=== PATIENT | female | born 1955 | race Caucasian/White ===

== ENCOUNTER → 2016-04-24 | Outpatient (CLI) | payer OTHER ==
[~2016-04-24] MED LIST: ASCO1CAP3 PO; ATOR10TA88 PO; B-COTAB18 PO; CALC-478 PO; COEN1CAP37 PO; FERR1TAB13 PO; FLAX1CAP11 PO; GING1CAP PO; GLUC1CAP35 PO; MOME200A INH; OMEG10007 PO; OPTIRAY 320 IV PRN; PRVIN525 INH; VITA1CAP4 PO; [UNRECOGNIZED DRUG - CODE] PO
--- NOTE | 2016-04-24 10:03 | DIAGNOSTIC IMAGING REPORT ---
CHEST CT WITH CONTRAST CT DOSE: 804.20 mGy.cm HISTORY: Lymphadenopathy. Lung opacities. Follow-up. R93.8 Abnormal finding on [id number] TECHNIQUE: Multiaxial CT images of the chest were performed following the intravenous administration of contrast. COMPARISON: Chest CT 10/02/2015. FINDINGS: There are again noted scattered multifocal airspace opacities. This is most pronounced within the right middle lobe and lingula. There is associated scattered tree-in-bud nodular opacities throughout the lungs. Airspace opacities within the lingula have slightly improved. There are few new airspace opacities within the left lower lobe. Trace mucoid material within the trachea. No pleural effusions. No pneumothorax. A few of the biapical airspace opacity demonstrate small areas of cystic change/cavitation. This is similar to the prior studies. No hepatic or splenic masses. There are few punctate calcified granulomas within the spleen. The adrenal glands are unremarkable. The mediastinal and left hilar lymphadenopathy is again noted. This is not significantly change from the prior study. Normal caliber thoracic aorta. The heart is normal in size. The central pulmonary arteries are patent. The main pulmonary artery is dilated up to 3.8 cm. This is consistent with pulmonary arterial hypertension. IMPRESSION: 1. Redemonstration of the scattered multifocal airspace opacities and tree-in-bud nodular opacities. This has demonstrated a waxing and waning appearance dating back to the 2013 examinations. Therefore, this favors chronic inflammatory/infectious change such as cryptogenic organizing pneumonia. Sarcoidosis could also have a similar appearance but is considered less likely. 2. Stable mediastinal and left hilar lymphadenopathy. Electronically signed by: Ben Choudhary M.D. 04/24/2016 10:01 AM Dictated Date/Time: 04/24/2016 9:49 AM
== END | disposition home or self-care (01) ==
LOC: C.CTS 08:39
PROVIDERS: ATTEND Internal Medicine Pulmonary Disease
DX: R59.0 Localized enlarged lymph nodes (principal); R93.8 Abnormal findings on diagnostic imaging of other specified body structures

== ENCOUNTER → 2016-06-12 | Day surgery (SDC) | payer OTHER ==
[2016-05-06 13:19] VITALS: BMI 38.0
--- NOTE | 2016-05-06 13:46 | PAT Medication Instructions ---
Service Date May 06, 2016. Current Home Medication List Albuterol Sulf (Albuterol Sulfate), 1 DOSE INH Q4H PRN for Shortness of Breath Ascorbic Acid (Vitamin C), 500 MG PO QAM Atorvastatin (Lipitor), 10 MG PO HS B-Complex Vitamins (Vitamin B Complex), 1 TAB PO QAM Ncffajd-Jojbbulyd-Dikn (Calcium & Magnesium + Zin 334-134-5 mg), 1 TAB PO HS Coenzyme Q10 (Ubidecarenone) (Co Q-10), 200 MG PO QPM Ferrous Sulfate (Kp Ferrous Sulfate), 1 TAB PO QAM Fish Oil (Blanch-3), 1 CAP PO BID Flaxseed (Linseed) (Flax Seed Oil), 1 CAP PO BID Garlic (Garlic), 1,500 MG PO QPM Knldsuyiufz-Ewqqgpofilb-Hlm C- (Glucosamine Chondroitin), 1 CAP PO HS Mometasone Furoate-Formoterol (Dulera 200/5 Mcg), 1 AER INH BID PRN for Shortness of Breath Vitamin E (E 1000), 1 DOSE PO QAM Medication Instructions For Your Scheduled Surgery - Hold the following medications starting 05/06/16: Vitamin E (E 1000), 1 DOSE PO QAM Garlic (Garlic), 1,500 MG PO QPM Vefslygklfk-Fhswnwpsthl-Jka C- (Glucosamine Chondroitin), 1 CAP PO HS Fish Oil (Blanch-3), 1 CAP PO BID Flaxseed (Linseed) (Flax Seed Oil), 1 CAP PO BID Katie Root BID Coenzyme Q10 (Ubidecarenone) (Co Q-10), 200 MG PO QPM - Hold the following medications the morning of surgery: B-Complex Vitamins (Vitamin B Complex), 1 TAB PO QAM Ferrous Sulfate (Kp Ferrous Sulfate), 1 TAB PO QAM Ascorbic Acid (Vitamin C), 500 MG PO QAM - Take the following medications the morning of surgery with a sip of water: Mometasone Furoate-Formoterol (Dulera 200/5 Mcg), 1 AER INH BID PRN for Shortness of Breath Albuterol Sulf (Albuterol Sulfate), 1 DOSE INH Q4H PRN for Shortness of Breath - Take the following medications as scheduled the night before surgery: Mdhqhwn-Avarlnfqt-Kxue (Calcium & Magnesium + Zin 334-134-5 mg), 1 TAB PO HS Atorvastatin (Lipitor), 10 MG PO HS Mometasone Furoate-Formoterol (Dulera 200/5 Mcg), 1 AER INH BID PRN for Shortness of Breath Albuterol Sulf (Albuterol Sulfate), 1 DOSE INH Q4H PRN for Shortness of Breath If you have any questions please call us at [phone] (Miranda Akbar PA-C) or [phone] or [phone]
[2016-05-06 14:43] LABS: BASO % 0.8 %; BASO ABS # 0.05 K/uL (0-0.2); COMPLETE YES; HEMATOCRIT 38.8 % (37-47); IG% 0.3 %; LYMPH % 26.3 %; LYMPH ABS # 1.68 K/uL (1.2-3.4); MEAN CELL VOLUME 91.9 fL (80-100); MEAN CORPUSCULAR HEMOGLOBIN 31.5 pg (25-34); MEAN CORPUSCULAR HGB CONC 34.3 g/dl (32-36); MEAN PLATELET VOLUME 10.3 fL (7.4-10.4); MONO % 6.3 %; NEUT % 58.3 %; PLATELET COUNT 189 K/uL (130-400); RED BLOOD COUNT 4.22 M/uL (4.2-5.4); WHITE BLOOD COUNT 6.38 K/uL (4.8-10.8)
[~2016-06-12] VITALS: Ht 162.6 cm; Wt 99.8 kg
[~2016-06-12] MED LIST changes: +ALBUTEROL 0.083% NEBU SOLN 3 ML VIAL INH PRN; +ATROPINE SULFATE 0.1 MG/ML 5ML SYR IV PRN; +CLINDAMYCIN PHOS 150 MG/ML 2 ML VIAL IV ONE; +DEXAMETHASONE SOD INJ 4 MG/ML VIAL ONE; +EpHEDrine SULFATE INJ 50 MG/ML AMP IV PRN; +EpHEDrine SULFATE INJ 50 MG/ML AMP ONE; +FENTANYL CITRATE INJ 50 MCG/1 ML 2 ML VIAL ONE; +FLUMAZENIL 0.1 MG/1 ML 10 ML VIAL IV PRN; +GLYCOPYRROLATE INJ 0.2 MG/ML VIAL ONE; +LABETALOL HCL IV 5 MG/ML 20ML IV PRN; +LACTATED RINGER'S 1000ML 1,000 ML IV SCH; +LIDOCAINE HCL 2% 2 ML VIAL (20MG/ML) ONE; +MIDAZOLAM HCL 1 MG/ML 2ML VIAL ONE; +NALOXONE HCL 0.4 MG/1 ML VIAL/CARP IV PRN; +NEOSTIGMINE METHYLSULFATE 5 MG/5 ML SYR ONE; +ONDANSETRON INJ 2 MG/ML 2 ML VIAL IV PRN; +ONDANSETRON INJ 2 MG/ML 2 ML VIAL ONE; -OPTIRAY 320 IV PRN; +PHENYLEPHRINE HCL INJ 10 MG/ML VIAL ONE; +PROMETHAZINE HCL INJ 12.5 MG in SODIUM CHLORIDE 0.9% 50ML 50 ML IV PRN; +PROPOFOL IV EMULSION 10 MG/ML 20 ML VIAL IV ONE; +ROCURONIUM BROMIDE 10 MG/ML 5 ML VIAL ONE; +SUCCINYLCHOLINE CHLORIDE 20 MG/ML 10 ML VIAL IV ONE
[2016-06-12 07:05] VITALS: BP 139/75; PULSE 68; TEMP 36.9; O2SAT 93; Ht 162.6 cm; Wt 99.8 kg
--- NOTE | 2016-06-12 07:33 | Discharge Instructions ---
Discharge Instructions Visit Reason for Visit: Mediastinal Adenopathy Discharge Goals Goal(s): Learn about illness Activity Recommendations Activity Limitations: resume your previous activity (in 24 hours) Anesthesia . Post Anesthesia Instructions: If you have had General Anesthesia or IV Sedation: * Do not drive today. * Resume driving when surgeon permits. * Do not make important decisions or sign legal documents today. * Call surgeon for: 1. Temperature elevations greater than 101 degrees F. 2. Uncontrollable pain. 3. Excessive bleeding. 4. Persistent nausea and vomiting. 5. Medication intolerance (nausea, vomiting or rash). * For nausea and vomiting use only clear liquids such as: tea, soda, bouillon until nausea subsides, then gradually increase diet as tolerated. * If you have any concerns or questions, call your surgeon's office. If physician is unavailable and it is an emergency, call 911 or go to the nearest emergency room. . Instructions / Follow-Up Instructions / Follow-Up 1. You may cough up some blood. Call physician if excessive amount noted. 2. Keep your scheduled appointment with Dr. Adams on June 19 @11:45. Diet Recommendations Recommended Home Diet: resume previous diet Pending Studies Studies pending at discharge: no Medical Emergencies . Who to Call and When: Medical Emergencies: If at any time you feel your situation is an emergency, please call 911 immediately. . Non-Emergent Contact Non-Emergency issues call your: Surgeon Call Non-Emergent contact if: you have a fever, your pain is not controlled . . "Provider Documentation" section prepared by William Godfrey.
--- NOTE | 2016-06-12 07:41 | History and Physical ---
History & Physical Date Jun 12, 2016. Chief Complaint Persistent cough and mediastinal lymphadenopathy. History of Present Illness The patient is a 61 year old female with complaints of chronic, persistent cough. Ct Scan shows mediastinal lymphadenopathy. She also has infiltrative changes in her lung king which wax and wane. Cough productive of whitish sputum. No fevers. No weight loss. Past Medical/Surgical History sleep apnea, obesity. Never smoked. Additional History Hepatic Disease: No Endocrine Disorder: No Kidney Disease: No Hypertension: No Heart Disease: No Bleeding Tendencies: No Allergies Coded Allergies: Moxifloxacin (Verified Allergy, Mild, RED, HIVES, CHEST PAIN, 06/12/16) Nickel (Verified Allergy, Mild, RED SORE WITH EARRINGS, 06/12/16) Physical Examination Skin: warm/dry, no rash Eyes: normal inspection, EOMI, sclerae normal ENT: normal ENT inspection, pharynx normal Head: normocephalic, atraumatic Neck: supple, no adenopathy, trachea midline Respiratory/Chest: lungs clear, normal breath sounds, no respiratory distress Cardiovascular: regular rate, rhythm, no edema, no murmur Extremities: normal inspection, normal range of motion Diagnosis mediastinal lymphadenopathy. Plan of Treatment EBUS
--- NOTE | 2016-06-12 10:12 | Medical Student: [facility] ---
Immediate Operative Summary Operative Date Jun 12, 2016. Pre-Operative Diagnosis Mediastinal lymphadenopathy Post-Operative Diagnosis Mediastinal lymphadenopathy Procedure(s) Performed Endobronchial Ultrasound with Biopsies Surgeon Dr. Adams Professor Of Practice Surgeon(s) none Estimated Blood Loss minimal Findings normal appearing trachea, and R & Left mainstem bronchi, lymph nodes visualized on ultrasound Specimens Station L4 and R4 lymph nodes biopsied Station 7 lymph nodes biopsied Station L10 and R10 lymph nodes biopsied Anesthesia general Complication(s) None Disposition Recovery Room / PACU
[2016-06-12 10:35] VITALS: PULSE 76; O2SAT 99
--- NOTE | 2016-06-12 10:45 | DIAGNOSTIC IMAGING REPORT ---
CHEST ONE VIEW PORTABLE CLINICAL HISTORY: s/p EBU postoperative evaluation COMPARISON STUDY: No previous studies for comparison. FINDINGS: No evidence pneumothorax postprocedure. Prominent pulmonary vasculature. IMPRESSION: No evidence pneumothorax. Components of congestive failure. Electronically signed by: Tomás Morales M.D. 06/12/2016 10:44 AM Dictated Date/Time: 06/12/2016 10:39 AM
--- NOTE | 2016-06-12 10:55 | Anesthesiology Progress Note ---
Anesthesia Post Op Note Date & Time Jun 12, 2016 at 10:54 Vital Signs Pain Intensity: 0 Vital Signs Past 12 Hours Date Time Temp Pulse Resp B/P Pulse Ox O2 Delivery O2 Flow Rate FiO2 06/12/16 10:50 36.3 80 24 121/71 97 Room Air 06/12/16 10:35 76 15 99 2.0 06/12/16 10:10 36.2 87 20 126/73 99 Mask 10 06/12/16 07:05 36.9 68 20 139/75 93 Room Air Notes Mental Status: alert / awake / arousable, participated in evaluation Pt Amnestic to Procedure: Yes Nausea / Vomiting: adequately controlled Pain: adequately controlled Airway Patency, RR, SpO2: stable & adequate BP & HR: stable & adequate Hydration State: stable & adequate Anesthetic Complications: no major complications apparent
[2016-06-12 11:15] VITALS: BP 119/66; PULSE 81; TEMP 36.6; O2SAT 95
[2016-06-12 11:48] VITALS: BP 113/61; PULSE 78; TEMP 36.6; O2SAT 96
[2016-06-12 12:15] VITALS: BP 107/54; PULSE 80; TEMP 36.7; O2SAT 95
--- NOTE | 2016-06-12 14:52 | OPERATIVE REPORT ---
DATE OF OPERATION: 06/12/2016 PREOPERATIVE DIAGNOSIS: Mediastinal adenopathy with persistent cough. POSTOPERATIVE DIAGNOSIS: Same. PROCEDURE: Endobronchial ultrasound with biopsy. SURGEON: Dr. Adams. SPECIFICS OF PROCEDURE: This is a very nice 61-year-old obese female who has never smoked cigarettes, who has markedly persistent cough and also has mediastinal adenopathy. I was asked to evaluate her and felt that she would be a candidate for endobronchial ultrasound but we would be very aggressive in obtaining tissue. On 06/12/2016 the patient underwent an uncomplicated endobronchial ultrasound with biopsy of multiple lymph node stations. She did well. PROCEDURE: The patient was brought to the operating room and placed in supine position. General anesthesia induced and endotracheal intubation was performed. The patient has history of gastroesophageal reflux disease and is obese and it was felt that we should proceed with an endotracheal tube rather than a laryngeal mask airway. On placing the scope we had seen that she had mildly inflamed mucosa, but really no abnormalities noted. I carefully inspected each of the tertiary airways. She really had very little in the way of sputum. I then used the endobronchial ultrasound and starting on the left side biopsied the left level 4, left level 10, level 7, right level 10 and right level 4 lymph nodes. We also did bronchial washings by placing about 50 mL of normal saline into the left mainstem bronchus and then suctioning it out. She did very well with this. She really had no problems and was awakened without difficulty. We had very little in the way of bleeding. We sent off multiple biopsies, in fact biopsied some lymph node stations more than 10 times with separate sticks. It appeared that we had lymph node material. I slowly removed the endobronchial ultrasound and saw no bleeding. She was then extubated in the room and did quite well. I attest to the content of the Intraoperative Record and any orders documented therein. Any exceptio ns are noted below.
== END | disposition home or self-care (01) ==
LOC: C.ACU 06:33
PROVIDERS: ATTEND Surgery
DX: R59.9 Enlarged lymph nodes, unspecified (principal); R05 Cough; E66.9 Obesity, unspecified; G47.30 Sleep apnea, unspecified